=== PATIENT | male | born 1985 | race Caucasian/White ===

== ENCOUNTER 2017-05-07 15:43 | Emergency (ER) | payer MEDICARE ==
[~2017-05-07] VITALS: Ht 182.9 cm; Wt 132.0 kg
[~2017-05-07 15:43] MED LIST: AMOXICILLIN500 MG PO; BACTRIM DS1 TAB PO; CEPHALEXIN500 MG PO; CORTISPORIN OTI10 M2 AD; CORTISPORIN OTI10 ML AD; LISINOPRIL20 MG PO; LORTAB5 PO; PERCOCET 5/321 COMBO PO
[2017-05-07] MEDS ORDERED: TRAMADOL HYDROC50 MG PO (16:10)
[2017-05-07] MEDS ORDERED: MOTRIN800 MG PO (16:10)
[2017-05-07 16:50] VITALS: BP 153/92
== END 2017-05-07 16:50 | disposition home or self-care (01) ==
LOC: ED 15:43
DX: M54.32 Sciatica, left side (principal); Z95.828 Presence of other vascular implants and grafts

== ENCOUNTER 2022-04-23 07:46 | Emergency (ER) | payer MEDICARE ==
[~2022-04-23] VITALS: Ht 182.9 cm; Wt 143.1 kg
[~2022-04-23 07:46] MED LIST changes: +MOTRIN800 MG PO; +TRAMADOL HYDROC50 MG PO
[2022-04-23] MEDS ORDERED: BACTRIM DS1 TAB PO (08:28)
[2022-04-23] MEDS ORDERED: OMNI-PAC300 MG PO (08:28)
[2022-04-23 08:53] VITALS: BP 123/91
== END 2022-04-23 09:04 | disposition home or self-care (01) ==
LOC: ED 07:46
DX: L70.0 Acne vulgaris (principal); L72.0 Epidermal cyst